=== PATIENT | male | born 1995 | race Two or more races ===

== ENCOUNTER 2018-03-05 13:33 | Emergency (ER) | payer OTHER ==
[~2018-03-05] VITALS: Ht 175.3 cm; Wt 104.3 kg
[2018-03-05] MEDS ORDERED: fentaNYL PF VIAL 100 MCG/2 ML VIAL IV ONE ×2 (13:45→17:30)
[2018-03-05] MEDS ORDERED: IV NORMAL SALINE 1000ML BAG 1,000 ML IV ONE (13:45)
[2018-03-05] MEDS ORDERED: ONDANSETRON PF 4 MG/2 ML VIAL. IV ONE (13:45)
--- NOTE | 2018-03-05 13:57 | PHYS DOC ---
Past Medical History Past Medical History: No Pertinent History Past Surgical History: No Surgical History Alcohol Use: Occasionally Drug Use: None Adult General Chief Complaint Chief Complaint: TRAUMA ALERT HPI HPI Patient is a 22 year old male who presents with left hand injury. Patient was using a circular saw when he somehow his left hand became entangled in the blade. He suffered a amputation of the distal tip of the left index finger and a significant laceration over the palmar aspect of the same finger. No additional injuries. Last tetanus shot was 5 years earlier. Patient is right- hand dominant. Review of Systems Review of Systems Constitutional: Denies Eyes: Denies change in visual acuity HENT: Denies Respiratory: Denies Cardiovascular: No additional information not addressed in HPI GI: Denies : Denies Musculoskeletal: Denies Integument: Denies other than laceration Neurologic: Denies headache All other systems were reviewed and found to be within normal limits, except as documented in this note. Current Medications Current Medications Current Medications Medications (Trade) Dose Ordered Sig/[place] Start Time Stop Time Status Last Admin Dose Admin Acetaminophen/ Hydrocodone Bitart (Lortab 5/325) 2 tab 1X ONCE 03/05/18 17:30 03/05/18 17:31 Cefazolin Sodium 50 ml @ 100 mls/hr 1X ONCE 03/05/18 13:45 03/05/18 14:14 DC 03/05/18 14:01 100 MLS/HR Fentanyl Citrate (Fentanyl 2ml Vial) 50 mcg 1X ONCE 03/05/18 17:30 03/05/18 17:31 Lidocaine HCl (Lidocaine 1% 20ml Vial) 20 ml 1X ONCE 03/05/18 15:00 03/05/18 15:01 DC Ondansetron HCl (Zofran) 4 mg 1X ONCE 03/05/18 13:45 03/05/18 13:46 DC 03/05/18 14:00 4 MG Sodium Chloride 1,000 ml @ 1,000 mls/hr 1X ONCE 03/05/18 13:45 03/05/18 14:44 DC 03/05/18 14:18 1,000 MLS/HR Allergies Allergies Allergies Coded Allergies Type Severity Reaction Last Updated Verified No Known Drug Allergies 12/13/14 No Physical Exam Physical Exam Constitutional: Well developed, well nourished, no acute distress HENT: Normocephalic, atraumatic, bilateral external ears normal, oropharynx moist Eyes: PERRLA, EOMI, conjunctiva normal Neck: Normal range of motion Cardiovascular:Heart rate regular rhythm, no murmur Lungs & Thorax: Bilateral breath sounds clear to auscultation Skin: Warm, dry, no erythema, no rash Extremities: complete amputation of the left index finger distal to the DIP joint. Partial fingernail remaining. Sensation to light touch intact over remainder of finger. ALL flexor, extensor mechanisms intact. 2cm lac over the palmar aspect of the same finger near MCP joint Neurologic: Alert and oriented X 3, normal motor function Psychologic: Affect normal, judgement normal Current Patient Data Vital Signs Vital Signs Date Time Temp Pulse Resp B/P (MAP) Pulse Ox O2 Delivery O2 Flow Rate FiO2 03/05/18 15:50 94 20 134/61 (85) 100 Room Air 03/05/18 13:35 99.0 99.0 EKG EKG [] Radiology/Procedures Radiology/Procedures There has been soft tissue amputation of the tip of the second finger. The tip of the distal phalanx is exposed to the surface, no evidence of fracture. Joint spaces and alignment are intact. IMPRESSION: Soft tissue amputation at the tip of the second left finger, exposing the terminal tuft of the distal phalanx. Course & Med Decision Making Course & Med Decision Making Pertinent Labs and Imaging studies reviewed. (See chart for details) 13:40: Patient is seen and examined. He has physical exam findings documented above. All flexor and extensor mechanisms of the left index finger are intact. Sensation light touch is intact over the remaining portions of the finger. Orders are placed for IV with IV fluids. Pain medications and antibiotics are also ordered. Plain film x-ray. Patient was evaluated in the emergency department after amputation and laceration of the left index finger. Orthopedics was consulted and did come to the ER to see the patient. Did not recommend any grafting or other procedure. Plan is to allow the wound to granulate and heal by secondary intention. Regarding the laceration on the index finger, see the procedure note below. The laceration was sutured. Patient was given 2 doses of fentanyl in the ER for pain. He was also given Ancef. He was discharged home on Keflex, Motrin, and [place]. He was advised to come back to the ER in 10 days to have the sutures removed or follow up at the orthopedist office for suture removal. All his questions were answered prior to discharge. Patient was agreeable to the plan of care. Opiate precautions were discussed and he was advised not to work while taking these medications. Procedure note: Laceration of left index finger near the base. The wound was anesthetized both with the [place] block and local anesthesia in the laceration. A total of 7 [place] of 1% lidocaine were used. The wound was closed with 4-0 Prolene. 9 sutures were placed using simple interrupted technique. The length of the wound was about to full centimeters. Patient tolerated procedure well. Following closure, a clean dry dressing was placed. Over the stump of his finger a Vaseline gauze was placed again with a clean dry dressing and then the finger was splinted prior to discharge home. Dragon Disclaimer Dragon Disclaimer This electronic medical record was generated, in whole or in part, using a voice recognition dictation system. Departure Departure Disposition: HOME, SELF-CARE Condition: GOOD Referrals: NO PCP (PCP) Scripts Cephalexin (KEFLEX) 500 Mg Capsule 500 MG PO QID for 10 Days, #40 CAP Prov: FLORECITA JUNE DO 03/05/18 Hydrocodone/Apap 5-325 (NORCO 5-325 TABLET) 1 Each Tablet 1-2 EACH PO PRN Q6HRS PRN for SEVERE PAIN, #30 as needed for pain Prov: FLORECITA JUNE DO 03/05/18 Ibuprofen (IBUPROFEN) 800 Mg Tablet 800 MG PO PRN TID PRN for MILD PAIN, #30 TAB take with food or milk to avoid upsetting stomach Prov: FLORECITA JUNE DO 03/05/18 FLORECITA JUNE DO Mar 05, 2018 13:57
--- NOTE | 2018-03-05 14:07 | RAD ---
HAND LEFT 3V History: CUT TIP OF FINGER OFF WITH SAW TODAY. Comparison: None are available There has been soft tissue amputation of the tip of the second finger. The tip of the distal phalanx is exposed to the surface, no evidence of fracture. Joint spaces and alignment are intact. IMPRESSION: Soft tissue amputation at the tip of the second left finger, exposing the terminal tuft of the distal phalanx. Electronically signed by: Jakob Escobar MD (03/05/2018 2:03 PM) [id number]
[2018-03-05] MEDS ORDERED: LIDOCAINE 1% Multi-Dose 20 ML VIAL. INJ ONE ×2 (14:30→15:00)
[2018-03-05] MEDS ORDERED: IBUP-1060 PO (16:00)
[2018-03-05] MEDS ORDERED: HYDR-3164 PO (16:00)
[2018-03-05] MEDS ORDERED: CEPH-264 PO (16:01)
[2018-03-05 17:30] VITALS: BP 132/59
[2018-03-05] MEDS ORDERED: HYDROcodone/APAP 5/325MG 1 TAB TABLET PO ONE (17:30)
== END 2018-03-05 17:30 | disposition home or self-care (01) ==
LOC: ER 13:33
DX: S68.111A Complete traumatic metacarpophalangeal amputation of left index finger, initial encounter (principal); W29.8XXA Contact with other powered hand tools and household machinery, initial encounter; Y93.89 Activity, other specified; Y92.89 Other specified places as the place of occurrence of the external cause; Y99.8 Other external cause status
CPT/HCPCS: 12001; 73130; 96365; 96375; 96376; 99283; J0690; J2405; J3010; J7030